=== PATIENT | female | born 1985 | race Caucasian/White ===

== ENCOUNTER → 2018-05-24 | Outpatient (CLI) | payer OTHER ==
[~2018-05-24] MED LIST: METHACHOLINE KIT (J7674) INH
== END ==
LOC: M CARPUL 10:50
DX: R05 Cough (principal)
CPT/HCPCS: J7674

== ENCOUNTER → 2023-09-16 | Outpatient (CLI) | payer OTHER ==
[~2023-09-16] MED LIST changes: +CETI10TA OR; +COMBO TOP; +FLEXERIL PO; +IMPLANON IMPLANT ID; +LIDO5DIS TOP; +MAPA500T2 PO; -METHACHOLINE KIT (J7674) INH; +MOTR200T44 PO; +NORT50CA OR; +SOMA350T OR; +TOPI100T OR; +TPS PAIN TOP; +TRAM50TA2 OR; +TREXIMET OR; +[UNRECOGNIZED DRUG - OTHER] OR
== END ==
LOC: M WHC 11:51
PROVIDERS: ATTEND Nurse Practitioner Primary Care
DX: Z12.31 Encounter for screening mammogram for malignant neoplasm of breast (principal)

== ENCOUNTER 2024-02-16 09:27 | Day surgery (SDC) | payer OTHER ==
[~2024-02-16] VITALS: Ht 160 cm; Wt 96.3 kg
[~2024-02-16 09:27] MED LIST changes: +CETI-24 PO; +CYCL-707 PO; +DULO1CAP6 PO; +FAMO1TAB11 PO; +FLUTISP; +GABA-1171 PO; +LIDOCAINE 2% 100MG/5ML SDV (FOR ANES.) As Ordered ONE; +LOSA50TA28 PO; +METF-838 PO; +MIDAZOLAM INJ 2MG/2ML VIAL As Ordered ONE; +MONT10TA97 PO; +NORE5TAB PO; +ONDANSETRON 4MG 2ML VIAL As Ordered ONE; +PLAQ200T4 PO; +PRAV20TA2 PO; +ROCURONIUM BROMIDE 50MG/5ML VIAL As Ordered ONE; +SEMA0.257; +SUMA50TA2; +SYNT25TA PO; +VITA100093 PO; +fentaNYL 100 MCG/2 ML INJECTION As Ordered ONE; +propofoL 500 MG/50 ML VIAL As Ordered ONE
[2024-02-16] MEDS: ceFAZolin SOD 2 GM in IV 1 EA IV ONE (10:03)
[2024-02-16 10:04] LABS: HEMATOCRIT 43.8 % (36.0-47.0); HEMOGLOBIN 14.9 g/dl (12.0-15.5); MEAN CORPUSCULAR HEMOGLOBIN 28.5 pg (27.0-33.0); MEAN CORPUSCULAR VOLUME 83.9 fl (80.0-96.0); PLATELET COUNT, AUTOMATED 263 10^3/uL (150-450); RED BLOOD COUNT 5.22 10^6/uL (4.00-5.40); WHITE BLOOD COUNT 7.6 10^3/uL (4.0-10.0)
[2024-02-16 10:43] LABS: HCG, SERUM QUALITATIVE NEGATIVE (NEGATIVE)
[2024-02-16] MEDS ORDERED: SUGAMMADEX SODIUM 500 MG/5 ML VIAL (BRIDION) As Ordered ONE (10:55)
[2024-02-16] MEDS ORDERED: KETOROLAC 60MG 2ML VIAL As Ordered ONE (10:55)
[2024-02-16] MEDS ORDERED: ACETAMINOPHEN 1000MG 100ML IV BAG As Ordered ONE (10:55)
[2024-02-16] MEDS ORDERED: LABETALOL 100MG/20ML VIAL As Ordered ONE (11:31)
[2024-02-16] MEDS ORDERED: PHENYLephrine 500MCG 5ML (100MCG/ML) SYRINGE As Ordered ONE (11:51)
[2024-02-16] MEDS: LIDOCAINE W/EPINEPHRINE 1% 20ML VIAL As Ordered ONE (12:20)
[2024-02-16] MEDS ORDERED: ePHEDrine SULFATE 25 MG/5 ML(5MG/ML) SYRINGE As Ordered ONE (13:08)
[2024-02-16] MEDS: TRANEXAMIC ACID 100 MG/ML 10ML VIAL As Ordered ONE (14:00)
[2024-02-16] MEDS: FLUORESCEIN 10% (100MG/ML) 5ML VIAL As Ordered ONE (14:25)
[2024-02-16] MEDS ORDERED: oxyCODONE 5MG TAB PO PRN ×3 (14:30→14:55)
[2024-02-16] MEDS ORDERED: LR 1,000 ML IV SCH (14:30)
[2024-02-16] MEDS ORDERED: fentaNYL 100 MCG/2 ML INJECTION IV PRN (14:30)
[2024-02-16] MEDS: ONDANSETRON 4MG 2ML VIAL IV PRN (14:42)
[2024-02-16] MEDS: HYDROMORPHONE HCL 0.5 MG/ 0.5 ML SYRINGE IV PRN (14:43)
[2024-02-16 15:41] VITALS: BP 126/75; TEMP 97.2; O2SAT 98
== END 2024-02-16 16:00 | disposition home or self-care (01) ==
LOC: M SDC 09:27
PROVIDERS: ATTEND Obstetrics & Gynecology
DX: N85.8 Other specified noninflammatory disorders of uterus (principal); D25.9 Leiomyoma of uterus, unspecified; N94.6 Dysmenorrhea, unspecified; R10.2 Pelvic and perineal pain; E11.9 Type 2 diabetes mellitus without complications; G47.30 Sleep apnea, unspecified; Z91.048 Other nonmedicinal substance allergy status; Z79.899 Other long term (current) drug therapy
CPT/HCPCS: 36415; 57283; 58552; 84703; 85027; 86850; 86900; 86901; 88307; 93005; J0131; J0665; J0690; J1100; J1170; J1885; J1920; J2250; J2405; J3010

== ENCOUNTER → 2025-03-02 | Outpatient (CLI) | payer OTHER ==
[~2025-03-02] MED LIST changes: -LIDOCAINE 2% 100MG/5ML SDV (FOR ANES.) As Ordered ONE; -MIDAZOLAM INJ 2MG/2ML VIAL As Ordered ONE; -ONDANSETRON 4MG 2ML VIAL As Ordered ONE; -PRAV20TA2 PO; +PRAV20TA78 PO; -ROCURONIUM BROMIDE 50MG/5ML VIAL As Ordered ONE; -fentaNYL 100 MCG/2 ML INJECTION As Ordered ONE; -propofoL 500 MG/50 ML VIAL As Ordered ONE
== END ==
LOC: M WHC 12:57
PROVIDERS: ATTEND Nurse Practitioner Primary Care
DX: Z12.31 Encounter for screening mammogram for malignant neoplasm of breast (principal); R92.313 Mammographic fatty tissue density, bilateral breasts